=== PATIENT | female | born 1960 | race Caucasian/White ===

== ENCOUNTER 2018-11-04 10:53 | Inpatient (IN) | payer MEDICARE ==
[~2018-11-04 10:53] MED LIST: BUPIV. HCL 0.25% (2.5MG/ML)/EPI. (1:200,000) PF 10 ML VIAL IM ONE; ENOXAPARIN SODIUM 40 MG/0.4 ML DISP.SYRIN SQ ONE; FAMOTIDINE 20 MG/2 ML VIAL IV ONE; GLYCOPYRROLATE 0.2 MG/1 ML 1 ML ONE; LACTATED RINGERS 1,000 ML IV.SOLN IV ONE; LIDOCAINE HCL 1% PF 300MG/30ML VIAL ONE; LIDOCAINE HCL 2% PF 100MG/5ML VIAL IJ ONE; MIDAZOLAM HCL 2 MG/2 ML VIAL ONE; ONDANSETRON HCL/PF 4 MG/ 2ML VIAL ONE; PROPOFOL 200 MG/20 ML VIAL IV ONE; ROCURONIUM BROMIDE 10 MG/ML 5ML VIAL ONE; SCOPOLAMINE HYDROBROMIDE 1.5MG/72HR PATCH TD ONE; SODIUM CHLORIDE IRRIG SOLUTION 3,000 ML IRRIG.SOLN IR ONE; SUGAMMADEX SODIUM 200 MG/2 ML VIAL IV ONE; ceFAZolin SODIUM 1 GM VIAL ONE; ePHEDrine SULFATE 50 MG/1 ML IVP ONE
[2018-11-04] MEDS ORDERED: DEXTROSE 50% 50 ML DISP.SYRIN IVP ONE (15:18)
[2018-11-04] MEDS ORDERED: LABETALOL HCL 20 MG/4 ML SYRINGE IV ONE (15:38)
[2018-11-04] MEDS ORDERED: HYDROmorphone HCL/PF 1 MG/ML VIAL ONE (15:43)
[2018-11-04] MEDS ORDERED: 0.9 % SODIUM CHLORIDE 1,000 ML IV ONE (16:12)
[2018-11-04 16:49] VITALS: BMI 50.7
[2018-11-04] MEDS ORDERED: IPRATROPIUM/ALBUTEROL SULFATE 3 ML AMPUL.NEB NEB PRN (16:57)
[2018-11-04] MEDS ORDERED: ACETAMINOPHEN 1,000 MG/100 ML INJ IV PRN (16:57)
[2018-11-04] MEDS ORDERED: PROMETHAZINE HCL 25 MG in 0.9 % SODIUM CHLORIDE 50 ML IV PRN (16:57)
--- NOTE | 2018-11-04 17:11 | History and Physical Report ---
History of Present Illnes - History of Present Illness Reason for Visit: S/P LSG History of Present Illness: Patient is a 57-year-old female who has tried multiple diets and exercise programs with no success. She has always struggled with her weight which has worsened since having children. Patient and surgeon decided to proceed with gastric sleeve procedure. Procedure went well- She will be admitted and monitored s/p surgical intervention. Patient has been on a liquid diet prior to surgery so she is a risk of dehydration s/p surgery. She will be admitted for IV hydration to help hydrate patient until she is able to tolerate a sufficient oral intake, will treat pain with IV medication until patient is able to tolerate oral meds, IV antiemetics to help reduce episodes of nausea and/or vomiting. Patient will be monitored closely using telemetry s/p surgery d/t HTN, hx of OR. Will encourage incentive spirometer for Asthma. Will monitor blood sugars d/t diabetes an monitor for hyp/hyperglycemia. Patient appears very uncomfortable s/p surgery. - Past Medical History Cardiac: CAD, HTN, OR (2011) Pulmonary: Asthma Gastrointestinal: GERD Heme/Onc: Cancer (UTERINE) Endocrine: Diabetes, obesity Grav: 5 Para: 2 Ab: 3 - Past Surgical History Past Surgical History: Cholecystectomy, Hysterectomy, Other (BREAST REDUCTION, SHOULDER, ), Other (bACK) - Past Family History Mother Family History: Other (ASTHMA) Father Family History: CAD, CVA, Hyperlipidemia, Hypertension - Past Social History Smoke: No Alcohol: None Drugs: None Lives: With Family - Health Maintenance Health Maintenance: Cholesterol, Mammogram Influenza Vaccine: No Pneumonia Vaccine: No Resuscitation Status: Resusciation Status Resuscitation Status Full Code Review of Systems - Review of Systems Constitutional: negative: Fever Eyes: negative: pain ENT: negative: Throat Pain Respiratory: SOB with Excertion. negative: Shortness of Breath Cardiovascular: negative: Chest Pain, Edema Gastrointestinal: Nausea, Vomiting, Abdominal Pain Genitourinary: negative: Dysuria Musculoskeletal: negative: Back Pain Skin: negative: Rash Neurological: negative: Weakness - Medications/Allergies Allergies/Adverse Reactions: Allergies Allergy/AdvReac Type Severity Reaction Status Date / Time Sulfa (Sulfonamide Allergy Verified 11/04/18 17:03 Antibiotics) Home Medications: Home Medications Duloxetine HCl 60 mg PO DAILY 11/04/18 Fluoxetine HCl 40 mg PO DAILY 11/04/18 Insulin Glargine,Hum.rec.anlog [Lantus Solostar] 80 unit SQ HS 11/04/18 Lisinopril 40 mg PO DAILY 11/04/18 Metoprolol Succinate [Toprol Xl] 25 mg PO 11/04/18 Metoprolol Succinate [Toprol Xl] 50 mg PO DAILY 11/04/18 Pregabalin 100 mg PO HS 11/04/18 Simvastatin 20 mg PO HS 11/04/18 Trazodone HCl 150 mg PO HS 11/04/18 amLODIPine BESYLATE [Norvasc] 5 mg PO DAILY 11/04/18 oxyCODONE HCL/ACETAMINOPHEN [Percocet 7.5-325] 1 each PO TID PRN 11/04/18 Current Inpatient Medications: Current Inpatient Medications Acetaminophen (Ofirmev) 1,000 mg IV Q6H PRN PRN Reason: For Mild Breakthrough Pain Stop: 11/08/18 16:56 Hydrocodone Bitart/Acetaminophen (Hycet 7.5-325mg/15 Ml Ud Cup) 15 ml PO Q4 PRN PRN Reason: Mild Pain (Score 1-4) Stop: 11/08/18 16:56 Albuterol/Ipratropium (Duoneb) 3 ml NEB Q4 PRN PRN Reason: Wheezing Stop: 12/04/18 16:56 Enoxaparin Sodium (Lovenox) 40 mg SQ DAILY [facility] Stop: 11/19/18 16:57 Famotidine (Pepcid) 20 mg IVP BID [facility] Stop: 11/08/18 20:59 Cefazolin Sodium 1 gm/ Sodium (Chloride) 50 mls @ 100 mls/hr IV Q8H [facility] Stop: 11/05/18 06:29 Dextrose/Sodium Chloride (D51/2ns) 1,000 mls @ 100 mls/hr IV Q10H [facility] Stop: 12/04/18 16:59 Promethazine HCl 25 mg/ Sodium (Chloride) 51 mls @ 200 mls/hr IV Q6 PRN PRN Reason: Nausea / Vomiting Stop: 11/08/18 16:56 Miscellaneous (Chem Sticks) 1 each MC ACHS [facility] Stop: 12/04/18 16:59 Morphine Sulfate () 2 mg IV Q2H PRN PRN Reason: PAIN 8-10 Stop: 11/08/18 16:56 Ondansetron HCl (Zofran) 4 mg IVP Q6H PRN PRN Reason: Nausea / Vomiting Stop: 11/08/18 16:56 Exam - Exam Vital Signs: Vital Signs (72 hours) 11/04/18 11/04/18 11/04/18 16:00 16:45 16:47 Temperature 97.3 F L 97.3 F L 97.1 F L Pulse Rate [ 65 65 79 Left Pulse ox] Respiratory 18 18 18 Rate Blood Pressure 186/81 186/81 145/78 [Left Arm] O2 Sat by Pulse 96 96 93 Oximetry General: Alert, Oriented to Person, Oriented to Place, Oriented to Time, Cooperative, Moderate distress, Morbidly Obese HEENT: Atraumatic, PERRLA, Mouth Mucous membr. moist/[place], Nose Mucous membr. moist/[place] Neck: Normal Range of Motion Carotids: No bruit Lungs: Clear to auscultation, Normal air movement Cardiovascular: Regular rate, Normal S1, Normal S2 Abdomen: Soft, Decreased Bowel Sounds Integumentary: Warm, Dry, Pale, Other (Incisions without redness, erythema, or drainage; skin adhesive intact) Extremities: Normal pulses, No tenderness/swelling Neurological: Normal gait, Normal speech, Strength Equal Bilat Psych/Mental Status: Mental status NL Assessment/Plan - Assessment/Plan (1) S/P laparoscopic sleeve gastrectomy Status: Acute Plan: Plan to admit for IV hydration, IV pain meds, and IV antiemetics. Lovenox and SCDs to help prevent DVTs, IS and frequent ambulation will be implemented. Start ice chips and advance diet as tolerated. IV pepcid BID (2) Morbid obesity due to excess calories Status: Acute Plan: Patient is s/p gastric sleeve. 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
[2018-11-04] MEDS: DEXTROSE 5 %-0.45 % SOD CHLORD 1,000 ML IV SCH (18:13)
[2018-11-04] MEDS: MORPHINE SULFATE 2 MG/ML VIAL IV PRN ×2 (18:25→22:05)
[2018-11-04] MEDS: ONDANSETRON HCL/PF 4 MG/ 2ML VIAL IVP PRN (18:44)
[2018-11-04] MEDS: FAMOTIDINE 20 MG/2 ML VIAL IVP SCH (20:59)
[2018-11-04] MEDS: ceFAZolin SODIUM 1 GM in 0.9 % SODIUM CHLORIDE 50 ML IV SCH (21:17)
[2018-11-05] MEDS: MORPHINE SULFATE 2 MG/ML VIAL IV PRN (02:19)
[2018-11-05] MEDS: ONDANSETRON HCL/PF 4 MG/ 2ML VIAL IVP PRN ×2 (02:20→20:30)
[2018-11-05] MEDS: DEXTROSE 5 %-0.45 % SOD CHLORD 1,000 ML IV SCH (05:14)
[2018-11-05] MEDS: ceFAZolin SODIUM 1 GM in 0.9 % SODIUM CHLORIDE 50 ML IV SCH (05:35)
[2018-11-05 05:40] LABS: BASOPHILS % 0.3 % (0.0-1.5); NEUTROPHILS # 6.5 # k/uL (1.4-7.7)
[2018-11-05 05:47] LABS: eGFR (Non-African) > 60
[2018-11-05] MEDS ORDERED: KETOROLAC TROMETHAMINE 30 MG/1ML VIAL IV PRN (06:19)
--- NOTE | 2018-11-05 06:21 | Inpatient Progress Note ---
Subjective - Required Recertification Statement I anticipate X number of days because-include discharge plan: 1 - Review of Systems Events since last encounter: Patient is lying in bed this morning awake. She states that she did not get much sleep. She was having a lot of discomfort last night. She states that pain is improving. She has had some nausea and moderate discomfort from the gas. She denies any chest pain or shortness of breath. She has been up ambulating in the halls and using incentive spirometer while awake. General: Denies: Chills, Night Sweats HEENT: Denies: Head Aches, Dysphasia Pulmonary: Denies: Dyspnea Cardiovascular: Denies: Chest Pain, Paroxysmal Noc. Dyspnea, Edema Gastrointestinal: Nausea, Vomiting, Abdominal Pain Genitourinary: Denies: Dysuria Musculoskeletal: Back Pain Neurological: Weakness Objective - Exam Vitals and I&O: Vital Signs Temp 98.2 F 11/05/18 05:36 Pulse 69 11/05/18 05:36 Resp 18 11/05/18 05:36 BP 165/72 11/05/18 05:36 Pulse Ox 93 11/05/18 05:36 Intake & Output 11/04/18 11/04/18 11/05/18 11:59 23:59 11:59 Intake Total 460 900 Output Total 400 600 Balance 60 300 Weight 134 kg Intake: IV 300 800 Right Wrist 300 800 Oral 160 100 Output: Urine 400 600 Other: Voiding Method Toilet Toilet General: Alert, Oriented to Person, Oriented to Place, Oriented to Time, Cooperative, Mild distress, Morbidly Obese HEENT: Atraumatic, PERRLA, Mouth Mucous membr. moist/[place], Nose Mucous membr. moist/[place] Neck: Supple, +2 carotid pulse wo bruit Lungs: Clear to auscultation, Normal air movement, Speaks full Sentences Cardiovascular: Regular rate, Normal S1, Normal S2 Abdomen: Soft, Decreased Bowel Sounds Extremities: No edema, Normal pulses, No tenderness/swelling Skin: Normal, [place], Warm, Dry, Other (incisions without redness/erythema/drainage; skin adhesive intact) Neurological: Normal gait, Normal speech, Strength Equal Bilat, Sensation intact, Generalized Weakness Psych/Mental Status: Mental status NL, Mood NL, Appropriate Affect - Results Results: Laboratory Results WBC 9.40 K/ul (4.00-12.00) 11/05/18 05:15 RBC 4.33 M/ul (3.90-5.20) 11/05/18 05:15 Hgb 12.9 g/dL (11.5-16.0) 11/05/18 05:15 Hct 38.5 % (34.5-46.5) 11/05/18 05:15 MCV 89.0 fl (80.0-100.0) 11/05/18 05:15 MCH 29.9 pg (28.0-34.0) 11/05/18 05:15 MCHC 33.6 g/dL (30.0-36.0) 11/05/18 05:15 RDW 12.4 % (11.3-14.3) 11/05/18 05:15 Plt Count 187 K/mm3 (130-400) 11/05/18 05:15 Neut % (Auto) 68.9 % (39.0-79.0) 11/05/18 05:15 Lymph % (Auto) 23.6 % (16.0-50.0) 11/05/18 05:15 [place] % (Auto) 5.6 % (0.0-11.0) 11/05/18 05:15 Eos % (Auto) 1.6 % (0.0-6.8) 11/05/18 05:15 Baso % (Auto) 0.3 % (0.0-1.5) 11/05/18 05:15 Neut # (Auto) 6.5 # k/uL (1.4-7.7) 11/05/18 05:15 Lymph # (Auto) 2.2 # k/uL (0.6-4.0) 11/05/18 05:15 [place] # (Auto) 0.5 # k/uL (0.0-0.9) 11/05/18 05:15 Eos # (Auto) 0.2 # k/uL (0.0-0.6) 11/05/18 05:15 Baso # (Auto) 0.0 # k/uL (0.0-0.5) 11/05/18 05:15 Potassium 4.1 mmol/L (3.5-5.1) 11/05/18 05:14 Chloride 105 mmol/L (98-107) 11/05/18 05:14 Carbon Dioxide 23 mmol/L (22-30) 11/05/18 05:14 BUN 9 mg/dL (7-17) 11/05/18 05:14 Creatinine 0.61 mg/dL (0.52-1.04) 11/05/18 05:14 Estimated Creat Clear 259 11/05/18 05:14 Est GFR ( Amer) > 60 (60-) 11/05/18 05:14 Est GFR (Non-Af Amer) > 60 (60-) 11/05/18 05:14 Glucose 243 mg/dL (74-106) H 11/05/18 05:14 Calcium 8.2 mg/dL (8.4-10.2) L 11/05/18 05:14 Total Bilirubin 0.6 mg/dL (0.2-1.3) 11/05/18 05:14 AST 35 U/L (15-46) 11/05/18 05:14 ALT 22 U/L (13-69) 11/05/18 05:14 Alkaline Phosphatase 86 U/L (38-126) 11/05/18 05:14 Total Protein 6.7 g/dL (6.3-8.2) 11/05/18 05:14 Albumin 3.5 g/dL (3.5-5.0) 11/05/18 05:14 Assessment/Plan - Assessment/Plan (1) Hypertension Status: Acute Qualifiers: Hypertension type: essential hypertension Qualified Code(s): I10 - Essential (primary) hypertension Assessment: Blood pressures are slightly elevated; denies any chest pain Plan: Will implement blood pressure medications (2) Morbid obesity due to excess calories Status: Acute Assessment: Patient tolerating ice chips and water; some nausea Plan: Will advance diet to clear liquids today (3) Nausea & vomiting Status: Acute Assessment: Patient still experiencing some nausea- no vomiting Plan: Will continue with IV Zofran and phenergan; IV pepcid BID (4) S/P laparoscopic sleeve gastrectomy Status: Acute Assessment: Patient experiencing nausea; has been ambulating, wearing SCDs while in bed, us ing incentive spirometry, patient receiving lovenox to prevent DVT Plan: Patient getting IV fluids for hydration, IV pain meds, and IV antiemetics. Lovenox and SCDs to help prevent DVTs, IS and frequent ambulation will be implemented. Patient eating ice chips and will advance diet to clear liquids as tolerated once nausea and vomiting is controlled. Will continue with Pepcid IV BID for GI upset (5) Type 2 diabetes mellitus Status: Acute Qualifiers: Diabetes mellitus long term care social worker insulin use: without half-way use Diabetes mellitus complication status: with hyperglycemia Qualified Code(s): E11.65 - Type 2 diabetes mellitus with hyperglycemia Assessment: Blood sugar elevated > 200 Plan: Implemented sliding scale insulin
[2018-11-05] MEDS: 0.9 % SODIUM CHLORIDE 1,000 ML IV SCH ×2 (07:45→16:24)
[2018-11-05] MEDS: INSULIN REGULAR, HUMAN 100 UNIT/ML 10ML VIAL SQ SCH ×4 (07:51→20:58)
[2018-11-05] MEDS ORDERED: LISINOPRIL 20 MG TABLET PO ONE (09:02)
[2018-11-05] MEDS: amLODIPine BESYLATE 5 MG TABLET PO SCH (09:40)
[2018-11-05] MEDS: FAMOTIDINE 20 MG/2 ML VIAL IVP SCH ×2 (09:40→20:46)
[2018-11-05] MEDS: HYDROcodone-ACETAMIN 7.5-325/15ML SOLN UD CUP PO PRN ×2 (10:41→20:55)
[2018-11-05] MEDS: ENOXAPARIN SODIUM 40 MG/0.4 ML DISP.SYRIN SQ SCH (17:00)
[2018-11-05] MEDS ORDERED: SIMVASTATIN 20 MG TABLET PO SCH (21:00)
[2018-11-05] MEDS ORDERED: PREGABALIN 50 MG CAPSULE PO SCH (21:00)
[2018-11-06] MEDS: 0.9 % SODIUM CHLORIDE 1,000 ML IV SCH (03:20)
[2018-11-06] MEDS: INSULIN REGULAR, HUMAN 100 UNIT/ML 10ML VIAL SQ SCH (07:25)
[2018-11-06] MEDS: FAMOTIDINE 20 MG/2 ML VIAL IVP SCH (08:34)
[2018-11-06] MEDS: amLODIPine BESYLATE 5 MG TABLET PO SCH (08:37)
[2018-11-06] MEDS: ENOXAPARIN SODIUM 40 MG/0.4 ML DISP.SYRIN SQ SCH (08:37)
[2018-11-06] MEDS ORDERED: LISINOPRIL 20 MG TABLET PO SCH (09:00)
[2018-11-06 09:01] VITALS: BP 145/62
[2018-11-06] MEDS: HYDROcodone-ACETAMIN 7.5-325/15ML SOLN UD CUP PO PRN (09:48)
--- NOTE | 2018-11-07 14:13 | Discharge Summary ---
Discharge Summary - Discharge [facility] Admission Date: 11/04/18 Discharge Date: 11/06/18 Discharge To: Home History of Present Illness: Patient is a 57-year-old female who has tried multiple diets and exercise programs with no success. She has always struggled with her weight which has worsened since having children. Patient and surgeon decided to proceed with gastric sleeve procedure. Procedure went well- She will be admitted and monitored s/p surgical intervention. Patient has been on a liquid diet prior to surgery so she is a risk of dehydration s/p surgery. She will be admitted for IV hydration to help hydrate patient until she is able to tolerate a sufficient oral intake, will treat pain with IV medication until patient is able to tolerate oral meds, IV antiemetics to help reduce episodes of nausea and/or vomiting. Patient will be monitored closely using telemetry s/p surgery d/t HTN, hx of [place]. Will encourage incentive spirometer for Asthma. Will monitor blood sugars d/t diabetes an monitor for hyp/hyperglycemia. Patient appears very uncomfortable s/p surgery. Condition at Discharge: Stable Home Medications: Ambulatory Orders Medication Instructions Recorded Duloxetine HCl 60 mg PO DAILY 11/04/18 Fluoxetine HCl 40 mg PO DAILY 11/04/18 Insulin Glargine,Hum.rec.anlog 80 unit SQ HS 11/04/18 [Lantus Solostar] Lisinopril 40 mg PO DAILY 11/04/18 Metoprolol Succinate [Toprol Xl] 25 mg PO 11/04/18 Metoprolol Succinate [Toprol Xl] 50 mg PO DAILY 11/04/18 Pregabalin 100 mg PO HS 11/04/18 Simvastatin 20 mg PO HS 11/04/18 Trazodone HCl 150 mg PO HS 11/04/18 amLODIPine BESYLATE [Norvasc] 5 mg PO DAILY 11/04/18 oxyCODONE HCL/ACETAMINOPHEN 1 each PO TID PRN 11/04/18 [Percocet 7.5-325] Consultations this Visit: None Procedures this Visit: Other (s/p lsg) Allergies/Adverse Reactions: Allergies Allergy/AdvReac Type Severity Reaction Status Date / Time Sulfa (Sulfonamide Allergy Verified 11/04/18 17:03 Antibiotics) Discharge Summary: Patient is a 57-year-old female that underwent the gastric sleeve procedure. She had some issues with nausea and dry heaves but has done well. She has been very cooperative with her care by ambulating frequently, using her incentive spirometer, and wearing her SCDs while in bed. She has been compliant with her diet during hospitalization. She is having minimal discomfort at this time and minimal nausea- she has is passing gas and belching. She is aware of discharge instructions and what she can and cannot do post surgical- she is aware of the strict diet she must follow to decrease discomfort and have success after procedure. She has family support and family will be taking her home- medications written by surgeon given to patient. She feels ready to go home. Hospital Course: Patient received IV pain medications, antiemetics, and IVF and was transitioned to oral. She has been up ambulating and using incentive spirometer. - Final Diagnosis (1) S/P laparoscopic sleeve gastrectomy Problems: Continue with bariatric sleeve diet- clear liquids today and start full liquids tomorrow; protein shake 80-100 grams protein Right or Left: Right (2) Morbid obesity due to excess calories Problems: Incision without redness or drainage, positive bowel sounds, minimal discomfort, belching and flatus, no extremity pain or edema, LCTA Right or Left: Right (3) Hypertension Problems: Stable- continue on home meds Right or Left: Right (4) Type 2 diabetes mellitus Problems: Stable; monitor blood sugars closely; keep log and take to PCP appointment Right or Left: Right (5) Nausea & vomiting Problems: Script for antiemetic given Right or Left: Right
--- NOTE | 2018-11-09 11:09 | Operative Note ---
PREOPERATIVE DIAGNOSIS: 1. Morbid obesity. 2. Type 2 diabetes. 3. Hypertension. 4. Coronary artery disease. POSTOPERATIVE DIAGNOSIS: 1. Morbid obesity. 2. Type 2 diabetes. 3. Hypertension. 4. Coronary artery disease. PROCEDURES PERFORMED: 1. Laparoscopic vertical sleeve gastrectomy. 2. Upper gastrointestinal endoscopy. SURGEON: Luis King M.D. INDICATIONS FOR PROCEDURE: Ms. Block is a 57-year-old female who presented with features of morbid obesity. She was noted to have a weight of 294 pounds with a BMI of 49.7 with the above-listed comorbidities. The patient was advised laparoscopic vertical sleeve gastrectomy and possible hiatal hernia repair. The patient showed understanding and agreed to proceed. DESCRIPTION OF PROCEDURE: After explaining to the patient in detail and informed consent was obtained, the patient was identified in the preoperative holding area. The patient was transferred to the operating room and was placed in supine position. Sequential compressive devices were placed for DVT prophylaxis. Preoperative antibiotics were given. After induction of anesthesia, the abdomen was prepped and draped in a sterile fashion. Through a left upper quadrant 1-cm incision, and using Optiview technique, the peritoneal cavity was entered and pneumoperitoneum was created. Thereafter, under direct vision, another 5-mm trocar was placed in the left midabdomen and another 15-mm trocar was placed in the right midabdomen. Through a 1-cm incision in the right subcostal region, another 5-mm trocar was placed. Through a 1-cm incision in the epigastrium, a Spencer retractor was introduced and the left lobe of the liver was retracted. On initial inspection, the patient was noted to have no evidence of hiatal hernia. I took down the gastroepiploic vessels using a LigaSure. This was continued superiorly. The short gastric vessels were taken down. The gastrophrenic ligament was divided and the Angle of His was mobilized. The posterior attachments of the stomach on the pancreas were released. Distally, the gastroepiploic vessels were taken down up to about 4 cm proximal to the pylorus. At this point, a #38 [place] Hurst Bougie was introduced into the stomach and was placed along the lesser curve. The stomach was then divided in a vertical fashion with multiple Endo MARY Covidien Black Load Staplers. The first firing was directed outwards towards the greater curvature. Subsequent firings were directed towards the Angle of His to create a loose sleeve around the #38 Danish bougie. The bougie was then removed and an upper GI endoscopy was performed at this point. The scope was introduced into the esophagus and was gradually advanced into the stomach. The GE junction appeared normal. The sleeve size appeared normal. No evidence of any active bleeding was noted. The stomach was insufflated with air and irrigation of fluid along the staple line revealed no evidence of air leak. The stomach was then suctioned out and the scope was removed. Absolute hemostasis was ensured. Thorough saline irrigation was given. The Spencer retractor was removed. Approximately 10 mL of a lidocaine- Marcaine mix was instilled under the left hemidiaphragm. The sleeve gastrectomy specimen was removed. The abdomen was then deflated. The incisions were closed with 4-0 Monocryl. Dermabond was applied. Approximately 10 mL of a lidocaine- Marcaine mix was injected into all the incisions. The patient was awakened from anesthesia and was transferred to the recovery room in stable condition. ESTIMATED BLOOD LOSS: Approximately 25 mL. CONDITION OF THE PATIENT: Stable. FLUIDS GIVEN: Per Anesthesia note. SPECIMEN(S) SENT: Sleeve gastrectomy specimen. COMPLICATIONS: None. ANESTHESIA: General. Luis King M.D. SABRA/danilo (Please copy [facility] provider when applicable) Job #[id number] LISBETH
== END 2018-11-06 10:40 | disposition home or self-care (01) | DRG 621 ==
LOC: OPSURG 10:53 → SOUTH 16:00
PROVIDERS: ADMIT Nurse Practitioner Family; ATTEND Nurse Practitioner Family
PROC: 0DB64Z3 Excision of Stomach, Percutaneous Endoscopic Approach, Vertical (ICD-10-PCS; principal; 2018-11-04)
DX: E66.01 Morbid (severe) obesity due to excess calories (principal); I10 Essential (primary) hypertension; J45.909 Unspecified asthma, uncomplicated; K21.9 Gastro-esophageal reflux disease without esophagitis; I25.10 Atherosclerotic heart disease of native coronary artery without angina pectoris; M19.90 Unspecified osteoarthritis, unspecified site; E11.65 Type 2 diabetes mellitus with hyperglycemia; G89.29 Other chronic pain; F32.9 Major depressive disorder, single episode, unspecified; F31.9 Bipolar disorder, unspecified; F41.9 Anxiety disorder, unspecified; M54.9 Dorsalgia, unspecified; Z79.899 Other long term (current) drug therapy; I25.2 Old myocardial infarction; Z68.42 Body mass index [BMI] 45.0-49.9, adult; Z79.82 Long term (current) use of aspirin; Z90.49 Acquired absence of other specified parts of digestive tract; Z90.710 Acquired absence of both cervix and uterus; Z79.4 Long term (current) use of insulin; Z86.14 Personal history of Methicillin resistant Staphylococcus aureus infection; Z88.2 Allergy status to sulfonamides; Z85.42 Personal history of malignant neoplasm of other parts of uterus
CPT/HCPCS: 80053; 85025; 88305; 97116; 97161; 97165; 97530; A9270; J0690; J1170; J1650; J1815; J2001; J2250; J2270; J2405; J2704; J3490; J7030; J7120; 43235; 43775; 99221; 99231; 99238; S5010